=== PATIENT | female | born 1950 | race Caucasian/White ===

== ENCOUNTER 2018-10-24 09:42 | Inpatient (IN) | payer OTHER ==
[~2018-10-24] VITALS: Ht 162.6 cm; Wt 98.0 kg
--- NOTE | 2018-10-24 | NUR ---
VITAL SIGNS TAKEN AND TOLERATED WELL. NO S/S OF RESPIRATORY DISTRESS OR DISCOMFORT NOTED AT THIS TIME. WILL CONTINUE TO MONITOR. Addendum: 10/25/18 at 0005 by Johanny Gunderson RN WRONG DATE
[~2018-10-24 09:42] MED LIST: ASPI-1718 PO; ATEN50TA8 PO; ATOR20TA PO; SYN.075 PO
[2018-10-24 10:00] VITALS: BP 144/87
--- NOTE | 2018-10-24 10:07 | NUR ---
PT AMBULATED TO ER BED 08
--- NOTE | 2018-10-24 10:09 | NUR ---
PT GIVEN CUP TO PROVIDE URINE SAMPLE AND CUP OF WATER
--- NOTE | 2018-10-24 10:22 | NUR ---
68 YO F BIB SELF W/ C/O SYNCOPAL EPISODE YESTERDAY AND DIZZINESS TODAY. PT REPORTS RIGHT EYE OR HEAD PAIN. DENIES VISUAL DISTURBANCES. AAOX4. AMB W/ STEADY GAIT. GCS 15. DNEIES N/V/D/FEVER/ILLNESS. HX CARDIAC, HTN, HYPOTHYROIDISM, HIGH CHOLESTROL RX EXTENSIVE UNSURE OF NAMES
--- NOTE | 2018-10-24 10:57 | NUR ---
PT TAKEN TO CT AT THIS TIME
--- NOTE | 2018-10-24 11:11 | NUR ---
PT RETUREND FROM CT AT THIS TIME
[2018-10-24 11:34] LABS: BASOPHILS % (AUTO) 0.2 % (0.0-2.0); EOSINOPHILS # (AUTO) 0.1 K/uL (0-0.4); HEMATOCRIT 40.7 % (36-48); HEMOGLOBIN 13.3 g/dL (12.0-16.0); LYMPHOCYTES % (AUTO) 32.3 % (20.5-51.1); MEAN CORPUSCULAR HEMOGLOBIN 30 pg (27-31); MEAN CORPUSCULAR HGB CONC 33 g/dL (33-37); MEAN CORPUSCULAR VOLUME 91.2 fL (80-94); MONOCYTES # (AUTO) 0.4 K/uL (0.8-1.0); MONOCYTES % (AUTO) 6.5 % (1.7-9.3); NEUTROPHILS # (AUTO) 3.7 K/uL (1.8-7.7); PLATELET COUNT (AUTO) 293 K/uL (140-450); RED BLOOD CELL COUNT(AUTO) 4.47 MIL/uL (4.20-5.40); RED CELL DISTRIBUTION WIDTH 13.2 % (11.6-13.7); WHITE BLOOD COUNT (AUTO) 6.1 K/uL (4.8-10.8)
[2018-10-24 11:37] LABS: BILIRUBIN,URINE 1+ (NEGATIVE); COLOR,URINE YELLOW (YELLOW); LEUKOCYTE ESTERASE ,URINE 2+ (NEGATIVE); NITRITE, URINE NEGATIVE (NEGATIVE); UGLUCOSE NEGATIVE (NEGATIVE)
[2018-10-24 11:51] LABS: APPEARANCE,URINE SLIGHTLY HAZY (CLEAR)
[2018-10-24 11:52] LABS: RBC,URINE 0-5 (RARE) /HPF (0-5)
[2018-10-24 11:53] LABS: ALBUMIN 3.4 g/dL (3.4-5.0); CARBON DIOXIDE 28.2 mmol/L (21-32); CREATININE 0.9 mg/dL (0.6-1.3); MAGNESIUM 2.1 mg/dL (1.8-2.4); POTASSIUM 4.2 mmol/L (3.5-5.1); TOTAL BILIRUBIN 0.6 mg/dL (0.0-1.0)
[2018-10-24 11:54] LABS: BLOOD, URINE 1+ (NEGATIVE)
[2018-10-24] MEDS ORDERED: LEVOFLOXACIN 500 MG TAB PO ONE (11:55)
[2018-10-24 11:56] LABS: PROTHROMBIN TIME 9.7 secs (10.8-13.4)
[2018-10-24] MEDS ORDERED: ACETAMINOPHEN 325 MG TAB PO PRN (12:00)
[2018-10-24] MEDS ORDERED: HYDROcodone/APAP 5/325 MG 1 TAB TAB PO PRN (12:00)
[2018-10-24 12:40] VITALS: BP 127/77
--- NOTE | 2018-10-24 12:45 | NUR ---
PATIENT ARRIVED FROM ER VIA WHEELCHAIR. ABLE TO AMBULATE FROM WHEELCHAIR TO [facility] BED. NO DISTRESS NOTED. DENIES ANY PAIN AT THIS TIME. AAOX4, CALM, COOPERATIVE, SKIN COLOR APPROPRIATE TO ETHNICITY, WARM TO TOUCH. SKIN INTACT. RESPIRATIONS EVEN, UNLABORED, ON ROOM AIR. IV SITE INTACT, PATENT, AND INFUSING IVF PER MD ORDERS. ORIENTED PATIENT TO ROOM AND CALL LIGHT. SAFETY MEASURES IN PLACE, CALL LIGHT WITHIN REACH. WILL CONTINUE TO MONITOR.
[2018-10-24] MEDS ORDERED: APIX5TAB PO (12:49)
[2018-10-24] MEDS ORDERED: SIMV20TA1 PO (12:49)
[2018-10-24] MEDS ORDERED: OMEP20TC12 PO (12:49)
[2018-10-24] MEDS ORDERED: ALEN70TA9 PO (12:49)
[2018-10-24] MEDS ORDERED: METO50TE2 PO (12:49)
--- NOTE | 2018-10-24 12:50 | NUR ---
PATIENT TRANSFERED TO THE FLOOR ON TRAVEL MONITOR IN [facility] ACCOMPANIED BY RN AND EMT. STABLE DURING TRANSFER. REPORT GIVEN TO TELE NURSE, JERILYN, FOR CONTINUATION OF CARE IN ROOM 121-B UNDER THE CARE OF DR. KOHLER.
--- NOTE | 2018-10-24 15:00 | NUR ---
PATIENT SITTING IN BED ON HER PHONE. NO DISTRESS NOTED. CONDITION UNCHANGED. WILL CONTINUE TO MONITOR.
[2018-10-24 16:00] VITALS: BP 121/81
[2018-10-24 16:05] VITALS: BP 132/81
[2018-10-24 16:10] VITALS: BP 132/91
--- NOTE | 2018-10-24 19:14 | NUR ---
GAVE REPORT TO CLEARANCE COORDINATOR NURSE FOR CONTINUITY OF CARE. PATIENT IN STABLE CONDITION.
--- NOTE | 2018-10-24 19:15 | NUR ---
RECEIVED REPORT FROM DAY SHIFT NURSE JERILYN-RN AT BEDSIDE. FAMILY AT BEDSIDE. AOX4, ON ROOM AIR WITH RIGHT AC #[id number]. PT USES HEARING AIDS. DISCUSSED PLAN OF CARE AND PT VERBALIZED UNDERSTANDING. NO S/S OF RESPIRATORY DISTRESS OR DISCOMFORT NOTED AT THIS TIME. BED IN LOWEST POSITION, BED BREAKS ON, BOTH SIDE RAILS UP. BEDSIDE TABLE AND CALL LIGHT ARE WITHIN REACH. WILL CONTINUE TO MONITOR.
[2018-10-24 20:00] VITALS: BP 122/68
[2018-10-24] MEDS ORDERED: ACETAMINOPHEN EXTRA STRENGTH 500 MG TAB PO PRN (20:00)
--- NOTE | 2018-10-24 20:00 | NUR ---
VITAL SIGNS TAKEN AND TOLERATED WELL. NO S/S OF RESPIRATORY DISTRESS OR DISCOMFORT NOTED AT THIS TIME. WILL CONTINUE TO MONITOR.
[2018-10-24] MEDS: METOPROLOL 50 MG TAB PO SCH (20:20)
--- NOTE | 2018-10-24 20:23 | NUR ---
SCHEDULED MEDICATION GIVEN AND TOLERATED WELL. PT C/O HEADACHE, TYLENOL EXTRA STRENGTH GIVEN AND TOLERATED WELL. NO S/S OF RESPIRATORY DISTRESS OR DISCOMFORT NOTED AT THIS TIME. WILL CONTINUE TO MONITOR.
[2018-10-24] MEDS ORDERED: ENOXAPARIN 100 MG/ML SYR SUBQ SCH (21:00)
[2018-10-24] MEDS ORDERED: LOVENOX 1MG/KG Q12H SUBQ SCH (21:00)
--- NOTE | 2018-10-24 22:00 | NUR ---
PT SLEEPING IN BED. NO S/S OF RESPIRATORY DISTRESS OR DISCOMFORT NOTED AT THIS TIME. WILL CONTINUE TO MONITOR.
--- NOTE | 2018-10-24 23:37 | NUR ---
PT C/O HEADACHE AND REQUESTING TYLENOL STATING "I'M NOT SUPPOSED TO TAKE ASPIRIN." TYLENOL GIVEN AND TOLERATED WELL. NO S/S OF RESPIRATORY DISTRESS OR DISCOMFORT NOTED AT THIS TIME. WILL CONTINUE TO MONITOR.
[2018-10-25] VITALS: BP 97/68
--- NOTE | 2018-10-25 | NUR ---
VITAL SIGNS TAKEN AND TOLERATED WELL. NO S/S OF RESPIRATORY DISTRESS OR DISCOMFORT NOTED AT THIS TIME. WILL CONTINUE TO MONITOR.
--- NOTE | 2018-10-25 02:00 | NUR ---
PT CONTINUES TO SLEEP IN BED. NO S/S OF RESPIRATORY DISTRESS OR DISCOMFORT NOTED AT THIS TIME. WILL CONTINUE TO MONITOR.
[2018-10-25 04:00] VITALS: BP 103/63
--- NOTE | 2018-10-25 04:00 | NUR ---
VITAL SIGNS TAKEN AND TOLERATED WELL. NO S/S OF RESPIRATORY DISTRESS OR DISCOMFORT NOTED AT THIS TIME. WILL CONTINUE TO MONITOR.
--- NOTE | 2018-10-25 06:00 | NUR ---
PT CONTINUES TO SLEEP IN BED. NO S/S OF RESPIRATORY DISTRESS OR DISCOMFORT NOTED AT THIS TIME. WILL CONTINUE TO MONITOR.
--- NOTE | 2018-10-25 06:27 | NUR ---
SCHEDULED MEDICATION GIVEN AND TOLERATED WELL. NO S/S OF RESPIRATORY DISTRESS OR DISCOMFORT NOTED AT THIS TIME. WILL CONTINUE TO MONITOR.
[2018-10-25] MEDS ORDERED: LEVOTHYROXINE 0.075 MG TAB PO SCH (06:30)
--- NOTE | 2018-10-25 07:24 | NUR ---
ENDORSED PT CARE TO DAY SHIFT NURSE LIBAN-RN FOR CONTINUITY OF CARE.
--- NOTE | 2018-10-25 07:25 | NUR ---
Received report from pm nurse Johanny. Pt awake, no signs of distress, FLACC 0. Go Cart Mechanic at bedside to draw blood. Call light within pt's reach.
[2018-10-25 08:00] VITALS: BP 110/47
[2018-10-25 08:38] LABS: ALBUMIN 3.5 g/dL (3.4-5.0); ANION GAP 7.6 (8-16); CARBON DIOXIDE 30.4 mmol/L (21-32); CREATININE 0.8 mg/dL (0.6-1.3); TOTAL BILIRUBIN 0.5 mg/dL (0.0-1.0)
[2018-10-25] MEDS ORDERED: ATORVASTATIN 20 MG TAB PO SCH (09:00)
[2018-10-25] MEDS ORDERED: ASPIRIN 81 MG TAB.CHEW PO SCH (09:00)
--- NOTE | 2018-10-25 09:00 | NUR ---
Pt seen by Dr. Raymond. Per physician, ok to dc if ok by ball ender. Awaiting visit from Dr. Jones.
[2018-10-25] MEDS: METOPROLOL 50 MG TAB PO SCH (09:22)
--- NOTE | 2018-10-25 09:23 | NUR ---
PATIENT HAS BEEN SCREENED AND CATEGORIZED MODERATE NUTRITION RISK. PATIENT WILL BE SEEN WITHIN 3-5 DAYS OF ADMISSION. 10/27/18-08/28/[address]
[2018-10-25 12:00] VITALS: BP 112/70
--- NOTE | 2018-10-25 12:40 | NUR ---
Pt seen by Dr. Jones. Per physician, pt ok to discharge & f/u in office within 3-5days.
--- NOTE | 2018-10-25 13:00 | NUR ---
Verbal & written discharge instructions provided to pt. Verbalized understanding & agree with discharge plans. All home meds dispensed to pt from pharmacy. IV discontinued.
--- NOTE | 2018-10-25 13:45 | NUR ---
Pt discharged to home at this time. Name band removed. Amb off unit with steady gait, accompanied by 2 daughters. Pt shows no signs of distress. All belongings with pt upon departure.
[2018-10-25 14:18] LABS: CREATINE KINASE MB 0.6 ng/mL (0-3.6)
[2018-10-25] MEDS ORDERED: SULFAMETH/TRIMETH 400/80MG 1 TAB PO SCH (21:00)
[2018-10-25] MEDS ORDERED: APIXABAN 2.5 MG TAB PO SCH (21:00)
--- NOTE | 2018-10-27 14:32 | NUR ---
MADE A FOLLOW UP APPOINTMENT WITH DR. CHRISTINA MARTINEZ FOR 11/01/18 AT 1130A.M. [address] [place] [address] [phone]. I CALLED THE PATIENT AND SHE SAID SHE WAS ALREADY IN THE CLINIC TO SEE THE PHYSICIAN. I SPOKE WITH PA IN THE CLINICA AND SHE SAID THAT THE PATIENT SAID SINCE SHE WAS THERE TODAY, SHE DIDN'T WANT THE APPOINTMENT ON SATURDAY. PA SAID SHE WOULD CANCEL THE APPOINTMENT.
== END 2018-10-25 13:45 | disposition home or self-care (01) | DRG 74 ==
LOC: MED 09:42 → MTU 12:02
PROVIDERS: ADMIT Internal Medicine; ATTEND Internal Medicine
DX: G90.8 Other disorders of autonomic nervous system (principal); N39.0 Urinary tract infection, site not specified; E03.9 Hypothyroidism, unspecified; E66.09 Other obesity due to excess calories; E78.5 Hyperlipidemia, unspecified; I11.9 Hypertensive heart disease without heart failure; I48.2 Chronic atrial fibrillation; Z79.82 Long term (current) use of aspirin; Z79.899 Other long term (current) drug therapy; Z68.37 Body mass index [BMI] 37.0-37.9, adult
CPT/HCPCS: 36415; 70450; 71045; 80053; 81001; 82550; 82553; 83735; 84443; 84484; 85025; 85610; 87081; 87086; 93005; 99285; J1650